=== PATIENT | male | born 1990 | race Caucasian/White ===

== ENCOUNTER 2024-01-13 10:37 | Emergency (ER) | payer MEDICAID ==
[~2024-01-13] VITALS: Ht 180.3 cm; Wt 106.5 kg
[2024-01-13 10:39] VITALS: BP 143/96; PULSE 86; O2SAT 97
[2024-01-13 15:10] VITALS: RESP 16; TEMP 98
== END 2024-01-13 15:14 | disposition home or self-care (01) ==
LOC: ER 10:38
DX: F41.9 Anxiety disorder, unspecified (principal); F31.9 Bipolar disorder, unspecified
CPT/HCPCS: 99281; 99283